=== PATIENT | female | born 2000 | race Caucasian/White ===

== ENCOUNTER 2022-12-09 08:19 | Emergency (ER) | payer SELFPAY ==
[2022-12-09 08:20] VITALS: BP 122/78; PULSE 61; RESP 18; TEMP 36.6; O2SAT 100; BMI 18.0
--- NOTE | 2022-12-09 08:28 | PC.NURSE ---
MATHEW GONZALES at
--- NOTE | 2022-12-09 08:31 | HMH.EDGENADL ---
Discharge Plan Disposition Patient Disposition: Home, Self-Care Prescriptions Prescriptions: New ondansetron 4 mg tablet,disintegrating 4 mg PO Q6H PRN (Reason: nausea and vomiting) 5 Days Qty: 20 0RF Referrals Follow up/Referrals: Provider,Referral, [Primary Care Provider] - See instructions Clinical Impressions Clinical Impression: Nausea & vomiting Instructions Patient Instructions: DI for Diarrhea and Traveler's Diarrhea -- Adult, DI for Diarrhea and Traveler's Diarrhea -- Child, DI for Nausea -- Adult, DI for Nausea -- Child Discharge ED Provider: Bryn Delgado General Adult HPI General Chief complaint: Nausea/Vomiting/Diarrhea Stated complaint: Possible mold ingestion, vomiting, syncopy Time Seen by Provider: 12/09/22 08:31 History of Present Illness HPI narrative: Patient is a 22-year-old female presenting today with suspected mold ingestion. She states that she was smoking a cigarello which had white and green spots on it and smoked the entire thing and then later realized that she thought it may have been mold that was going on top of it. She states that this happened on Tuesday and about 8 hours later she started having some nausea and vomiting and has been vomiting since that time. No significant abdominal pain no respiratory symptoms associated with this. No fevers or chills. No urinary symptoms no other changes in bowel habits. Related Data Previous Rx's Medication Instructions Recorded ondansetron 4 mg disintegrating 4 mg PO Q6H PRN nausea and 12/09/22 tablet vomiting 5 days #20 tabs Allergies Allergy/AdvReac Type Severity Reaction Status Date / Time latex Allergy Verified 12/09/22 08:32 [facility] Disclaimer: The information contained in this section may have been updated after the patient was seen, as this information can be updated by other users. Medical History (Updated 12/09/22 @ 10:30 by Bryn Delgado MD) No significant past medical history Family History (Updated 12/09/22 @ 08:33 by Le Marshall RN) Other No significant family history Social History (Updated 12/09/22 @ 08:33 by Le Marshall RN) Smoking Status: Current every day smoker alcohol intake: never current occupational status: other Travel in the last 8 weeks: None ROS Obtained: Yes All systems reviewed & no additional complaints except as documented Physical Exam General General appearance: alert Respiratory Respiratory exam: Present normal lung sounds bilaterally and respiratory distress Cardiovascular Cardiovascular exam: Present regular rate; Absent tachycardia Abdominal Exam Abdominal exam: Present soft; Absent distention, tenderness, guarding or rebound Neurological Exam Neurological exam: Present alert and oriented X3 Medical Decision Making Tripp Inquiry Pt receiving controlled substance: No Vital Signs: 12/09/22 08:20 12/09/22 09:00 12/09/22 09:30 Temperature 97.9 F Temperature Source Oral Pulse Rate 67 55 L Pulse Rate [Radial] 61 Respiratory Rate 18 Blood Pressure 106/68 L 104/67 L Blood Pressure [Right Arm] 122/78 Blood Pressure Mean 77 76 Blood Pressure Mean [Right Arm] 92 Blood Pressure Source [Right Arm] Automatic Cuff Blood Pressure Position [Right Arm] Sitting 02 Sat by Pulse Oximetry 100 100 99 Oxygen Delivery Method Room Air Room Air Room Air 12/09/22 10:00 Temperature Temperature Source Pulse Rate 62 Pulse Rate [Radial] Respiratory Rate Blood Pressure 101/60 L Blood Pressure [Right Arm] Blood Pressure Mean 68 Blood Pressure Mean [Right Arm] Blood Pressure Source [Right Arm] Blood Pressure Position [Right Arm] 02 Sat by Pulse Oximetry 97 Oxygen Delivery Method Room Air Lab Data Lab results reviewed: Yes I reviewed the patient's lab results. Lab Results 12/09/22 08:30: WBC 6.5, RBC 5.52 H, Hgb 16.7 H, Hct 50.1 H, MCV 90.7, MCH 30.2, MCHC 33.3, RDW 12.5, Plt Count 360, MPV 8.8, Neut % (Auto
--- NOTE | 2022-12-09 08:36 | ECG_ITS ---
APPROVED REPORT Exam: Resting ECG HR:59 bpm ECG Measurements Heart Rate [address] 111 P 47 QRSd 79 QRS 85 QT 392 T 73 QTc 392 Conclusion SINUS BRADYCARDIA WITH SHORT CT INTERVAL BORDERLINE ECG UNCONFIRMED REPORT Electronically signed by : Sanjay Zavala MD 12/09/2022 21:14:09
[2022-12-09 08:58] LABS: Chloride 103 mmol/L (98-107)
[2022-12-09 08:59] LABS: Basophils # 0.1 K/mm3 (0-0.2); Basophils % 0.8 % (0.1-2.0); Eosinophils % 0.5 % (0.1-12.0); Hematocrit 50.1 % (37.0-47.0); Hemoglobin 16.7 g/dL (12.2-16.2); Lymphocytes # 1.4 K/mm3 (0.7-4.5); Lymphocytes % 22.1 % (10-50); Mean Corpuscular HGB Conc 33.3 g/dL (31.8-35.4); Mean Corpuscular Hemoglobin 30.2 pg (27.0-31.2); Mean Corpuscular Volume 90.7 fl (81-99); Mean Platelet Volume 8.8 fl (7.4-10.4); Monocytes # 0.2 K/mm3 (0.1-1.0); Monocytes % 3.5 % (1.7-9.3); Neutrophils # 4.8 K/mm3 (1.8-7.8); Neutrophils % 73.1 % (37.0-80.0); Platelet Count 360 K/mm3 (142-424); Potassium 3.7 mmoL/L (3.5-5.1); Red Blood Count 5.52 M/mm3 (4.20-5.40); Red Cell Distribution Width 12.5 % (11.5-17.5); Sodium 140 mmol/L (136-145); White Blood Count 6.5 K/mm3 (4.5-13.0)
[2022-12-09 09:00] VITALS: BP 106/68; PULSE 67; O2SAT 100
[2022-12-09 09:01] LABS: Alanine Aminotransferase 20 U/L (12-78); Aspartate Amino Transferase 28 U/L (14-36); Blood Urea Nitrogen 11 mg/dl (7-17); Creatinine Clearance Estimated 84 mL/min (50-200); Estimated Glomerular Filt Rate 91 ml/min (>60); GFR (African American) 111 ML/MIN (>60)
[2022-12-09 09:02] LABS: Albumin Level 5.3 g/dl (3.5-5.0); Albumin/Globulin Ratio 1.5 (1.1-1.8); Alkaline Phosphatase 86 U/L (38-126); Anion Gap 18.7 mEq/L (5-15); Calcium 9.9 mg/dl (8.4-10.2); Carbon Dioxide 22 mmol/L (22.0-30.0); Globulin 3.5 g/dL (1.3-3.2); Glucose 104 mg/dl (74-100); Total Protein,Serum 8.8 g/dl (6.3-8.2)
[2022-12-09 09:30] VITALS: BP 104/67; PULSE 55; O2SAT 99
[2022-12-09 10:00] VITALS: BP 101/60; PULSE 62; O2SAT 97
--- NOTE | 2022-12-09 10:05 | PC.NURSE ---
ROUNDED ON PT AT THIS TIME, JITENDRA MIST GIVEN FOR PO CHALLENGE. NO NEEDS VOICED. CALL LIGHT WITHIN REACH
--- NOTE | 2022-12-09 10:25 | PC.NURSE ---
PT DRANK HER PO JITENDRA MIST WITH NO PROBLEMS
--- NOTE | 2022-12-09 10:27 | PC.NURSE ---
Dr. Delgado at BS to update pt on POC
[2022-12-09 10:42] VITALS: BP 104/66; PULSE 54; RESP 14; TEMP 36.7; O2SAT 100
[2022-12-09 12:00] LABS: HCG Qualitative, Serum Negative (Negative)
== END 2022-12-09 10:40 | disposition home or self-care (01) ==
PROVIDERS: Emergency Provider Student in an Organized Health Care Education/Training Program
DX: R11.2 Nausea with vomiting, unspecified (principal); F17.200 Nicotine dependence, unspecified, uncomplicated
CPT/HCPCS: 80053; 84703; 85025; 93005; 96361; 96374; 99284; J2405

== ENCOUNTER 2023-03-30 14:20 | Emergency (ER) | payer OTHER, SELFPAY ==
[2023-03-30 14:21] VITALS: BP 112/76; PULSE 97; RESP 16; TEMP 37.1; O2SAT 99; BMI 16.5
--- NOTE | 2023-03-30 14:32 | EXP.UTC ---
Discharge Plan Disposition Patient Disposition: Home, Self-Care Condition: Good Prescriptions Prescriptions: New azithromycin [Zithromax] 250 mg tablet 250 mg PO UD DOSE PK Qty: 6 0RF Rx Instructions: Take two (2) tablets today, then one (1) tablet days #2 thru #5 [id number] [Bromfed DM] 2-30-10 mg/5 mL Syrup 5 ml PO Q6H PRN (Reason: Cough) Qty: 240 0RF prednisone 10 mg tablet 10 mg PO BID 3 Days Qty: 6 0RF No Action ondansetron 4 mg tablet,disintegrating 4 mg PO Q6H PRN (Reason: nausea and vomiting) 5 Days Qty: 20 0RF Referrals Follow up/Referrals: Provider,Referral, MD [Primary Care Provider] - See instructions Activity Restrictions/Add. Instructions Additional Instructions/Restrictions: Drink plenty of fluids. Take tylenol or ibuprofen for pain or fever. Take the medications as directed. Follow up with your regular doctor. GO TO THE ER FOR ANY WORSENING SYMPTOMS Clinical Impressions Clinical Impression: Pharyngitis, Sinusitis Instructions Patient Instructions: DI for Pharyngitis/Tonsillopharyngitis -- Adult, DI for Sinusitis Discharge ED Provider: Ranjit Page [facility] General Stated complaint: cough,runny nose,sore throat Time Seen by Provider: 03/30/23 14:31 History of Present Illness Provider Complaint: She states that she has had a sore throat for the past 3 days. She also has sinus congestion and a cough. Related Data Previous Rx's Medication Instructions Recorded ondansetron 4 mg disintegrating 4 mg PO Q6H PRN nausea and 12/09/22 tablet vomiting 5 days #20 tabs azithromycin 250 mg tablet 250 mg PO UD DOSE PK #6 tabs 03/30/23 (Zithromax) [id number]-biosbvbxcmsbpvk-WA 5 ml PO Q6H PRN Cough #240 mL 03/30/23 2 mg-30 mg-10 mg/5 mL oral syrup (Bromfed DM) prednisone 10 mg tablet 10 mg PO BID 3 days #6 tabs 03/30/23 Allergies Allergy/AdvReac Type Severity Reaction Status Date / Time latex Allergy Verified 12/09/22 08:32 [facility] PFSH Disclaimer: The information contained in this section may have been updated after the patient was seen, as this information can be updated by other users. Medical History (Updated 03/30/23 @ 14:56 by Ranjit Page APRN) No significant past medical history Family History (Updated 12/09/22 @ 08:33 by Le Marshall RN) Other No significant family history Social History (Updated 12/09/22 @ 10:32 by Bryn Delgado MD) Smoking Status: Current every day smoker alcohol intake: never current occupational status: other Travel in the last 8 weeks: None ROS Obtained: Yes All systems reviewed & no additional complaints except as documented Constitutional Constitutional: Reports chills and Reports fever(s) Eyes Eyes: Denies eye discharge ENT Ears, Nose, Mouth, and Throat: Reports as per HPI Cardiovascular Cardiovascular: Denies chest pain Respiratory Respiratory: Denies chest congestion and Reports cough Gastrointestinal Gastrointestingal: Reports nausea; Denies abdominal pain, constipation, cramping, diarrhea or vomiting Musculoskeletal Musculoskeletal: Denies arthralgias Integumentary/Breasts Skin/Breast: Denies rash Neurologic Neurologic: Denies paresthesias Physical Exam General General appearance: alert and in no apparent distress Head Head exam: atraumatic, normocephalic and normal inspection Eye Eye exam: Present normal appearance, PERRL and EOMI ENT ENT exam: Present mucous membranes moist and normal external ear exam Expanded ENT Exam TM/Canal exam: Bilateral TM: erythema and bulging Nose exam: Absent sinus tenderness Mouth exam: Present normal external inspection; Absent drooling Teeth exam: Present normal inspection Throat exam: Present tonsillar erythema, tonsillomegaly and tonsillar exudate Neck Neck exam: Present normal inspection, full ROM and trachea midline; Absent tenderness, meningismus or lymphadenopathy Chest Chest inspection: Present nor
[2023-03-30 14:43] LABS: UTC Strep Screen (Rapid) Negative (Negative)
[2023-03-30 15:01] VITALS: BP 112/76; PULSE 97; RESP 16; TEMP 37.1; O2SAT 99
== END 2023-03-30 15:02 | disposition home or self-care (01) ==
PROVIDERS: Emergency Provider Nurse Practitioner Family
DX: J01.90 Acute sinusitis, unspecified (principal); J02.9 Acute pharyngitis, unspecified; F17.210 Nicotine dependence, cigarettes, uncomplicated
CPT/HCPCS: 87880; 99204; 99212; G0463

== ENCOUNTER 2023-07-08 10:28 | Emergency (ER) | payer OTHER, MEDICAID, SELFPAY ==
[2023-07-08 11:10] VITALS: BP 135/86; PULSE 96; RESP 22; TEMP 37.2; O2SAT 97; BMI 17.8
--- NOTE | 2023-07-08 11:12 | EXP.UTC ---
Discharge Plan Disposition Patient Disposition: Home, Self-Care Condition: Good Prescriptions Prescriptions: New amoxicillin [amoxicillin] 500 mg tablet 500 mg PO TID 10 Days Qty: 30 0RF [id number] [Bromfed DM] 2-30-10 mg/5 mL Syrup 5 ml PO Q6H PRN (Reason: Cough) Qty: 240 0RF methylprednisolone 4 mg Tablets,Dose Pack 4 mg PO DIRECTED Qty: 21 0RF Referrals Follow up/Referrals: Provider,Referral, [Primary Care Provider] - See instructions Activity Restrictions/Add. Instructions Additional Instructions/Restrictions: Drink plenty of fluids. Take tylenol or ibuprofen for pain or fever. Take the medications as directed. Follow up with your regular doctor. GO TO THE ER FOR ANY WORSENING SYMPTOMS Clinical Impressions Clinical Impression: Pharyngitis, Bronchitis Stand Alone Forms Stand Alone Forms: Work/School Release Instructions Patient Instructions: Acute Bronchitis, DI for Acute Bronchitis Discharge ED Provider: Ranjit Page [facility] [place] General Stated complaint: runny nose, st, congestion, buenrostro Time Seen by Provider: 07/08/23 11:12 History of Present Illness Provider Complaint: She states that for the past 3 days she has had worsening sore throat, chills, low grade fever and malaise. Related Data Previous Rx's Medication Instructions Recorded amoxicillin 500 mg tablet 500 mg PO TID 10 days #30 tabs 07/08/23 [id number]-xvlrhhhwagmycfv-[id number] 5 ml PO Q6H PRN Cough #240 mL 07/08/23 2 mg-30 mg-10 mg/5 mL oral syrup (Bromfed DM) methylprednisolone 4 mg tablets in 4 mg PO DIRECTED #21 tabs 07/08/23 a dose pack Allergies Allergy/AdvReac Type Severity Reaction Status Date / Time latex Allergy Verified 12/09/22 08:32 [facility] Disclaimer: The information contained in this section may have been updated after the patient was seen, as this information can be updated by other users. Medical History (Updated 07/08/23 @ 11:54 by Ranjit Page APRN) No significant past medical history Family History (Updated 12/09/22 @ 08:33 by Le Marshall RN) Other No significant family history Social History (Updated 12/09/22 @ 10:32 by Bryn Delgado MD) Smoking Status: Current every day smoker alcohol intake: never current occupational status: other Travel in the last 8 weeks: None ROS Obtained: Yes All systems reviewed & no additional complaints except as documented Constitutional Constitutional: Reports chills and Reports fever(s) Eyes Eyes: Denies eye discharge ENT Ears, Nose, Mouth, and Throat: Reports as per HPI Cardiovascular Cardiovascular: Denies chest pain Respiratory Respiratory: Denies chest congestion and Reports cough Gastrointestinal Gastrointestingal: Reports nausea; Denies abdominal pain, constipation, cramping, diarrhea or vomiting Musculoskeletal Musculoskeletal: Denies arthralgias Integumentary/Breasts Skin/Breast: Denies rash Neurologic Neurologic: Denies paresthesias Physical Exam General General appearance: alert and in no apparent distress Eye Eye exam: Present normal appearance, PERRL and EOMI ENT ENT exam: Present mucous membranes moist and normal external ear exam Expanded ENT Exam External ear exam: Present normal external inspection TM/Canal exam: Bilateral TM: erythema and bulging Nose exam: Absent sinus tenderness Nasal speculum exam: Bilateral: normal Mouth exam: Present normal external inspection; Absent drooling Teeth exam: Present normal inspection Throat exam: Present tonsillar erythema and tonsillomegaly Neck Neck exam: Present normal inspection, full ROM and trachea midline; Absent tenderness, lymphadenopathy or thyromegaly Chest Chest inspection: Present normal inspection and symmetric chest wall rise; Absent tenderness or rash Respiratory Respiratory exam: Present normal lung sounds bilaterally; Absent respiratory distress, wheezes, stridor or accessory muscle use Cardiovascular
[2023-07-08 11:24] LABS: UTC Strep Screen (Rapid) Negative (Negative)
[2023-07-08 11:27] VITALS: BP 135/86; PULSE 96; RESP 22; TEMP 37.2; O2SAT 97
== END 2023-07-08 11:59 | disposition home or self-care (01) ==
PROVIDERS: Emergency Provider Nurse Practitioner Family
DX: J20.9 Acute bronchitis, unspecified (principal); J02.9 Acute pharyngitis, unspecified; R51.9 Headache, unspecified; R09.81 Nasal congestion; R50.9 Fever, unspecified; R53.81 Other malaise
CPT/HCPCS: 87635; 87880; 99212; 99214; G0463